=== PATIENT | female | born 1980 | race Two or more races ===

== ENCOUNTER 2021-11-14 19:46 | Emergency (ER) | payer SELFPAY ==
[~2021-11-14] VITALS: Ht 160 cm; Wt 77.3 kg
[2021-11-14 19:50] VITALS: BP 149/96
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
[2021-11-14] MEDS ORDERED: ACETAMINOPHEN 325 MG TABLET. PO ONE (20:15)
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
== END 2021-11-14 22:15 | disposition home or self-care (01) ==
LOC: ER 19:46
DX: M54.50 Low back pain, unspecified (principal); G89.11 Acute pain due to trauma; Y08.89XA Assault by other specified means, initial encounter; Y93.89 Activity, other specified; Y92.89 Other specified places as the place of occurrence of the external cause; Y99.8 Other external cause status
CPT/HCPCS: 72100; 81025; 99283